=== PATIENT | female | born 1970 | race Caucasian/White ===

== ENCOUNTER → 2018-04-29 | Outpatient (CLI) | payer OTHER ==
[~2018-04-29] MED LIST: ALBUTEROL SULFATE 2.5 MG/3 ML NEBU. NEB ONE
--- NOTE | 2018-04-29 16:39 | RAD ---
Examination: KNEE LEFT 2V History: DISABILITY DETERMINATION. CHRONIC LT KNEE PAIN, NO KNOWN INJURY Comparison/Correlation: None Findings: Frontal and lateral views of the left knee were obtained. Spurring about the patella is present. Spurring about the medial and lateral compartments noted. Medial compartment narrowing is present. No acute fracture or bone destruction. Small knee joint effusion is present. Impression: Degenerative spurring. Mild medial compartment narrowing. Electronically signed by: Aaron Gregory MD (04/29/2018 4:35 PM) [facility]
--- NOTE | 2018-04-29 16:43 | RAD ---
Examination: LUMBAR SPINE 2-3V History: DISABILITY DETERMINATION. CHRONIC LOW BACK PAIN, NO KNOWN INJURY Comparison/Correlation: None Findings: Frontal and lateral views of the lumbar spine were obtained. Spurring of the low lumbar spine is noted. Vertebral body heights are adequate. No significant malalignment. Lower lumbar spine facet joint degenerative changes are present. No fracture or bony destruction. Lumbarization of S1 appears to present. The spaces are adequate. Calcific density overlying the left upper quadrant which may represent a renal calculus is identified to measure 0.9 cm diameter. Impression: Degenerative changes of the spine mostly involve spurring and lumbar spine facet joint degenerative change. Left renal calculus is present. Electronically signed by: Aaron Gregory MD (04/29/2018 4:40 PM) [facility]
== END | disposition home or self-care (01) ==
LOC: PF 08:01
PROVIDERS: ATTEND Surgery
DX: M47.896 Other spondylosis, lumbar region (principal); M17.12 Unilateral primary osteoarthritis, left knee; J45.909 Unspecified asthma, uncomplicated
CPT/HCPCS: 72100; 73560; 94060; 94640; J7613